=== PATIENT | female | born 1985 | race Caucasian/White ===

== ENCOUNTER 2018-11-13 09:55 | Outpatient (CLI) | payer BC ==
[2018-11-13 12:14] LABS: BASOPHILS % 0.3 % (0.0-1.5); NEUTROPHILS # 2.7 # k/uL (1.4-7.7)
[2018-11-13 12:15] LABS: MAGNESIUM 2.1 mIU/l (1.6-2.3); eGFR (Non-African) > 60
[2018-11-13 12:16] LABS: HDL 38 mg/dL (>40)
== END 2018-11-13 09:57 ==
LOC: LAB 09:55
PROVIDERS: ATTEND Student in an Organized Health Care Education/Training Program
DX: Z98.890 Other specified postprocedural states (principal)
CPT/HCPCS: 80053; 80061; 82306; 82607; 82728; 82746; 83735; 83970; 84134; 84425; 84443; 84484; 85025

== ENCOUNTER 2018-12-15 15:49 | Outpatient (CLI) | payer OTHER | END 2018-12-15 15:51 | LOC: LABRHC 15:49 | PROVIDERS: ATTEND Nurse Practitioner Family | DX: J02.9 Acute pharyngitis, unspecified (principal) | CPT/HCPCS: 87070 ==